=== PATIENT | female | born 1950 | race Caucasian/White ===

== ENCOUNTER → 2017-02-25 | Outpatient (CLI) | payer MEDICARE, BC ==
--- NOTE | 2017-02-25 14:43 | RAD ---
CT chest without contrast 02/25/2017 Clinical indication: Shortness of air and difficulty with inspiration. Pain under the anterior chest and left breast and sternum. Comparison: None. Technique: Multiple CT images of the chest without contrast. Coronal and sagittal reformations were obtained. PQRS Compliance Statement: One or more of the following individualized dose reduction techniques were utilized for this examination: 1. Automated exposure control 2. Adjustment of the mA and/or kV according to patient size 3. Use of iterative reconstruction technique Findings: Chest: Heart size is normal without significant pericardial effusion. The thoracic aorta is normal in caliber with mild scattered calcified atheromatous disease. There is a partially visualized left breast nodule measuring 2.0 x 1.8 cm (series 2/35). Right breast nodule measuring 1.6 x 1.6 cm (series 2/image 31). No definite axillary, mediastinal or obvious hilar lymphadenopathy, though evaluation is limited in the absence of intravenous contrast. The central airways are patent. There is mild scarring or atelectasis in the right middle lobe and lingula. Linear areas of perifissural nodularity on the right major and minor fissures best appreciated on coronal imaging with parts representative nodule measuring 4 mm (series 3/image 52). There are few sub-3 mm left perifissural nodularity on the left. Two mm noncalcified nodule in the left upper lobe (series 2/image 34). 3 mm noncalcified nodule in the right upper lobe (series 2/image 21). Tracer left pleural effusion. No right pleural effusion or pneumothorax. There are no destructive osseous lesions. Limited images of the upper abdomen: Grossly unremarkable. Impression: 1. Bilateral breast nodules, largest on the left measuring up to 2 cm, indeterminate. Mammography is recommended for further evaluation 2. Bilateral sub-5 mm bilateral pulmonary nodules, indeterminate. Follow-up CT chest in 3 months is recommended to assess for stability. 3. Trace left pleural effusion.
--- NOTE | 2017-02-25 15:01 | RAD ---
CT head without contrast 02/25/2017 Clinical indication: Fall from ladder with loss of consciousness of unknown duration. Comparison: None. Technique: Multiple CT noncontrast images of the head according to standard protocol. PQRS Compliance Statement: One or more of the following individualized dose reduction techniques were utilized for this examination: 1. Automated exposure control 2. Adjustment of the mA and/or kV according to patient size 3. Use of iterative reconstruction technique Head findings: Ventricles and subarachnoid spaces are normal in size and configuration. No acute intracranial hemorrhage or extra-axial fluid collection. Basilar cisterns are patent. No midline shift. Garibay-white matter interfaces are maintained. Mastoid air cells and visualized paranasal sinuses are well aerated. Impression: No acute intracranial hemorrhage.
== END | disposition home or self-care (01) ==
LOC: CT 13:32
PROVIDERS: ATTEND Nurse Practitioner Family
DX: N64.4 Mastodynia (principal); M79.602 Pain in left arm; R07.81 Pleurodynia; W11.XXXA Fall on and from ladder, initial encounter
CPT/HCPCS: 70450; 71250

== ENCOUNTER → 2017-03-09 | Outpatient (CLI) | payer BC, MEDICARE ==
--- NOTE | 2017-03-09 13:20 | RAD ---
DATE: 03/09/2017 EXAM: DIGITAL DIAGNOSTIC BILATERAL, BREAST BILATERAL HISTORY: Diagnostic mammogram for finding of breast masses on recent CT. COMPARISON: Mammogram 07/09/2010 This study was interpreted with the benefit of Computerized Aided Detection (CAD). The breast parenchyma shows scattered fibroglandular densities. Breast parenchyma level B. FINDINGS: Bilateral CC and MLO views were performed. Spot compression CC and MLO views of each breast were obtained. Targeted ultrasound was performed in each breast. Right breast: There is an 8 mm hyperdense partly circumscribed mass in the upper outer right breast. Targeted ultrasound of this mass demonstrates a anechoic circumscribed mass with posterior acoustic enhancement compatible with a simple cyst. There is a 5 mm microlobulated and partially indistinct mass in the outer right breast along the posterior nipple line on the right MLO view. There is no sonographic correlate after targeted ultrasound was performed around the 9:00 position, 9 to 10 cm from the nipple. There are no suspicious microcalcifications or areas of architectural distortion. Left breast: There is a 22 mm circumscribed hyperdense mass in the upper outer left breast at mid depth. Targeted ultrasound of this mass demonstrated a anechoic, circumscribed mass with posterior acoustic enhancement compatible with a simple cyst. There is an adjacent 6 mm hypoechoic mass with posterior acoustic enhancement without internal vascularity compatible with a simple cyst. IMPRESSION: 1. Right mammogram: Suspicious finding. There is a new 5 mm microlobulated mass in the outer right breast along the posterior nipple line on the right MLO view. Recommend stereotactic biopsy of this mass, as it is not identifiable by ultrasound. This recommendation was conveyed to the office of the [facility] on 03/09/2017 at 1:[address] Franco. 2. Left mammogram: Benign findings. BI-RADS CATEGORY: 4 SUSPICIOUS ABNORMALITY- BIOPSY SHOULD BE CONSIDERED RECOMMENDED FOLLOW-UP: BIO BIOPSY RECOMMENDED PQRS compliance statement: Mammography is a sensitive method for finding small breast cancers, but it does not detect them all and is not a substitute for careful clinical examination. A negative mammogram does not negate a clinically suspicious finding and should not result in delay in biopsying a clinically suspicious abnormality. "Our facility is accredited by the [employer] Mammography Program."
== END | disposition home or self-care (01) ==
LOC: MAMMO 08:42
PROVIDERS: ATTEND Nurse Practitioner Family
DX: R92.8 Other abnormal and inconclusive findings on diagnostic imaging of breast (principal); D49.3 Neoplasm of unspecified behavior of breast
CPT/HCPCS: 76641; G0204; 77066